=== PATIENT | male | born 1935 | race Hispanic/Latino ===

== ENCOUNTER 2018-06-27 13:05 | Inpatient (IN) | payer MEDICARE ==
[~2018-06-27] VITALS: Ht 175.3 cm; Wt 104.3 kg
[2018-06-27] MEDS ORDERED: ACETAMINOPHEN 325 MG TAB PO ONE ×2 (15:00→19:00)
--- NOTE | 2018-06-27 15:47 | Diagnostic Imaging Report ---
EXAMINATION: PA and lateral views of the chest. COMPARISON: None CLINICAL HISTORY: Sepsis DISCUSSION: The lungs are hypoinflated. There is patchy consolidation in the right lower lobe with loss of the hemidiaphragmatic contour. Small associated pleural effusion. Left lung is grossly clear. Heart size and pulmonary vasculature are within normal limits when accounting for degree of inspiratory effort. No acute osseous abnormality. IMPRESSION: Findings compatible with right lower lobe pneumonia and trace parapneumonic effusion in the clinical setting of sepsis. Follow-up chest radiograph in 8 weeks is suggested after appropriate treatment to document resolution. Signed by: Dr. Evgeny Kothari M.D. on 06/27/2018 3:44 PM
[2018-06-27] MEDS ORDERED: CEFTRIAXONE SOD 1 GM/NS 50 ML 50 ML IV ONE (16:15)
[2018-06-27 16:26] LABS: CLARITY,URINE SL CLOUDY (CLEAR); COLOR,URINE YELLOW (YELLOW); LEUKOCYTE ESTERASE ,URINE NEGATIVE (NEGATIVE); NITRITE,URINE NEGATIVE (NEGATIVE); PROTEIN,URINE DIPSTICK 2+ (NEGATIVE)
[2018-06-27 16:27] LABS: BILIRUBIN,URINE NEGATIVE (NEGATIVE); KETONES,URINE NEGATIVE (NEGATIVE); URINE UROBILINOGEN 1 mg/dL (0.2 - 1)
--- NOTE | 2018-06-27 16:30 | NUR ---
PT LETHARGIC BUT AROUSES EASILY TO VOICE. FAMILY AT BEDSIDE. NAD AT THIS TIME.
[2018-06-27 16:39] LABS: BACTERIA,URINE MANY /HPF
[2018-06-27 16:51] LABS: BASOPHILS # (AUTO) 0.1 (0.0-0.1); BASOPHILS % 0.3 % (0.0-1.0); EOSINOPHILS % 0.1 % (0.0-6.0); HEMATOCRIT 33.5 % (38.2-49.6); HEMOGLOBIN 10.9 g/dL (14.0-18.0); LYMPHOCYTES # (AUTO) 1.8 (1.0-3.2); MEAN CORPUSCULAR HEMOGLOBIN 29.9 pg (28-32); MEAN CORPUSCULAR HGB CONC 32.5 g/dL (31-35); MONOCYTES # (AUTO) 2.3 (0.2-0.8); MONOCYTES % 12.4 % (4.4-11.3); NEUTROPHILS # (AUTO) 13.9 (2.1-6.9); NEUTROPHILS % 76.4 % (38.7-80.0); PLATELET COUNT 278 x10e3/uL (140-360); RED BLOOD COUNT 3.64 x10e6/uL (4.3-5.7); RED CELL DISTRIBUTION WIDTH 13.8 % (11.7-14.4)
[2018-06-27 17:14] LABS: ALANINE AMINOTRANSFERASE 19 IU/L (0-55); ALBUMIN 2.6 g/dL (3.5-5.0); ALBUMIN/GLOBULIN RATIO 0.5 (0.8-2.0); ALKALINE PHOSPHATASE 86 IU/L (40-150); ANION GAP 11.9 mmol/L (8-16); BLOOD UREA NITROGEN 13 mg/dL (7-26); BUN/CREATININE RATIO 12 (6-25); CALCIUM 8.8 mg/dL (8.4-10.2); CARBON DIOXIDE 25 mmol/L (22-29); CHLORIDE 99 mmol/L (98-107); CREATININE, SERUM 1.12 mg/dL (0.72-1.25); EST GLOMERULAR FILTRATION RATE > 60 ML/MIN (60-); GLUCOSE 199 mg/dL (74-118); POTASSIUM 3.9 mmol/L (3.5-5.1); SODIUM 132 mmol/L (136-145)
[2018-06-27] MEDS ORDERED: DEXTROSE 50% SYRINGE 50 ML IV PRN (18:45)
[2018-06-27] MEDS ORDERED: CEFTRIAXONE SOD 1 GRAM/0.9% SOD CHL 50ML BAG IV SCH (18:45)
[2018-06-27] MEDS: ALBUTEROL SULF 0.083% NEB SOLN 3 ML NEB NEB SCH ×2 (18:45→23:00)
[2018-06-27] MEDS ORDERED: AZITHROMYCIN 500MG/SOD CHL 0.9% 250ML BAG IV SCH (18:45)
[2018-06-27] MEDS ORDERED: CEFTRIAXONE SOD 1 GM/NS 50 ML 50 ML IV SCH (19:00)
--- OUTSIDE RECORDS SUMMARY | 2018-06-27 19:00 | XMS REPORT ---
Author Author [facility] Address Unknown Phone Unavailable Care Team Providers Care Circulation Director Name Role Phone Heri PARHAM Unavailable Unavailable Payers Payer Name Policy Type Policy Number Effective Date Expiration Date Problems This patient has no known problems. Allergies, Adverse Reactions, Alerts Allergy Name Allergy Type Status Severity Reaction(s) Onset Date Inactive Date Treating Clinician Comments No Known Allergies DA Active U 2018-06-23 00:00:00 Penicillins DA Active U 2011-06-09 00:00:00 Medications This patient has no known medications. Results Test Description Test Time Test Comments Text Results Atomic Results Result Comments CHEST 2 VIEWS 2018-06-27 15:42:00 [place] [address] Patient Name: CHAD NARVAEZ MR #: [id number] : 1935 Age/Sex: 83/M Req #: [id number] Adm Physician: Ordered by: MARILIN PARHAM MD Report #: [id number] Location: ER Room/Bed: Procedure: [id number] DX/CHEST 2 VIEWS Exam Date: 06/27/18 Exam Time: 1510 REPORT STATUS: Signed EXAMINATION: PA and lateral views of the chest. C OMPARISON: None CLINICAL HISTORY: Sepsis DISCUSSION: The lungs are hypoinflated. There is patchy consolidation in the right lower lobe with loss of the hemidiaphragmatic contour. Small associated pleural effusion. Left lung is grossly clear. Heart size and pulmonary vasculature are within normal limits when accounting for degree of inspiratory effort. No acute osseous abnormality. IMPRESSION: Findings compatible with right lower lobe pneumonia and trace parapneumonic effusion in the clinical setting of sepsis. Follow-up chest radiograph in 8 weeks is suggested after appropriate treatment to document resolution. Signed by: Dr. Luis Mckeon M.D. on 06/27/2018 3:44 PM Dictated By: LUIS MCKEON MD [id number] Transcribed By: OLEKSANDR on 06/27/18 [id number] COPY TO: MARILIN PARHAM MD URINALYSIS COMPLETE 2018-06-24 02:40:00 UA COLOR (test code=COLU) YELLOW YELLOW UA APPEARANCE (test code=APPU) CLEAR CLEAR UA GLUCOSE DIPSTICK (test code=DGLUU) 50 (Trace) mg/dL NEGATIVE UA BILIRUBIN DIPSTICK (test code=BILU) NEGATIVE mg/dL NEGATIVE UA KETONE DIPSTICK (test code=KETU) 20 (Small) mg/dL NEGATIVE UA SPECIFIC GRAVITY (test code=SGU) 1.027 1.001-1.035 UA BLOOD DIPSTICK (test code=JOAO) 1+ (Small) NEGATIVE UA PH DIPSTICK (test code=DEBBIE) 5.0 5.0-8.0 UA PROTEIN DIPSTICK (test code=PROU) 30 (1+) mg/dL NEGATIVE UA UROBILINIOGEN DIPSTICK (test code=URO) 2.0 (1+) mg/dL NEGATIVE UA NITRITE DIPSTICK (test code=KRYSTIN) NEGATIVE NEGATIVE UA LEUKOCYTE ESTERASE W REFLEX (test code=LEUUR) NEGATIVE NEGATIVE UA WBC (test code=WBCU) 0-5 #/HPF 0-5 UA RBC (test code=RBCU) 0-2 #/HPF 0-5 UA EPITHELIAL CELLS (test code=EPIU) FEW per HPF FEW UA BACTERIA (test code=BACU) NONE SEEN #/HPF NONE UA HYALINE CAST (test code=HYALU) 3-5 #/LPF 0-5 UA GRANULAR CAST (test code=GRANU) 6-10 #/LPF NONE UA MUCUS (test code=MUCU) FEW #/LPF FEW UA AMORPHOUS SEDIMENT (test code=AMORU) FEW #/LPF Urine Source? Clean CatchPROCALCITONIN (PCT)2018-06-24 02:01:00* Test Item Value Reference Range Comments PROCALCITONIN (PCT) (test code=PROCAL) 0.33 ng/ml Concentration Interpretation (ng/mL) <0.51 Sepsis is not likely. Local bacterial infection is possible. (LOW RISK for progression to Sepsis) 0.51 - 2.00 Sepsis is possible, but other conditions are known to elevate PCT as well. (MODERATE RISK for progression to Sepsis) > 2.00 Sepsis is likely, unless other causes are known. (HIGH RISK for progression to Severe Sepsis or Septic Shock) 10.00 High likelihood of Severe Sepsis or Septic or higher Shock. *Increased PCT levels may not always be related to systemic bacterial infection.*Low PCT levels do not automatically exclude the presence of bacterial infection.*All results should be interpreted taking into account the patients history. BASIC METABOLIC [id number] 00:42:00* Test Item Value Reference Range Comments SODIUM (test code=NA) 137 mmol/L 136-145 POTASSIUM (test code=K) 3.5 mmol/L 3.5-5.1 CHLORIDE (test code=CL) 104.0 mmol/L 98-107 CARBON DIOXIDE (test code=CO2) 25.0 mmol/L 21-32 ANION GAP (test code=GAP) 11.5 10-20 GLUCOSE (test code=GLU) 157 mg/dL 74-106 BLOOD UREA NITROGEN (test code=BUN) 25 mg/dL 7-18 GLOMERULAR FILTRATION RATE (test code=GFR) 53 mL/min >=60 Estimated GFR by using Modified MDRD formula.Chronic kidney disease is defined as either kidney damageor GFR <60 mL/min/1.73 m2 for >3 months. CREATININE (test code=CREAT) 1.30 mg/dL 0.7-1.3 BUN/CREATININE RATIO (test code=BUN/CREA) 19.2 10-20 CALCIUM (test code=CA) 8.5 mg/dL 8.5-10.1 HEPATIC FUNCTION [id number] 00:42:00* Test Item Value Reference Range Comments TOTAL PROTEIN (test code=PROT) 7.5 gram/dL 6.4-8.2 ALBUMIN (test code=ALB) 3.1 g/dL 3.4-5.0 GLOBULIN (test code=GLOB) 4.4 gram/dL 2.7-4.2 ALBUMIN/GLOBULIN RATIO (test code=A/G) 0.7 0.75-1.50 BILIRUBIN TOTAL (test code=BILT) 0.60 mg/dL 0.0-1.0 BILIRUBIN DIRECT (test code=BILD) 0.21 mg/dL 0.0-0.20 SGOT/AST (test code=AST) 10 IUnit/L 15-37 SGPT/ALT (test code=ALT) 13 IUnit/L 12-78 ALKALINE PHOSPHATASE TOTAL (test code=ALKP) 80 IUnit/L 45-117 Note change in reference range due to change in reagent. [id number] 00:42:00* Test Item Value Reference Range Comments LIPASE (test code=LIP) 139 U/L 73.0-393.0 [id number] 00:42:00* Test Item Value Reference Range Comments TROPONIN-I (test code=TROPI) <0.015 ng/mL 0-0.045 B-TYPE NATRIURETIC [id number] 00:35:00* Test Item Value Reference Range Comments B-TYPE NATRIURETIC PEPTIDE (test code=BNP) 47.54 pgram/mL 0-100 LACTIC [id number] 00:33:00* Test Item Value Reference Range Comments LACTIC ACID (test code=LACT) 1.0 mmol/L 0.4-1.9 BASIC METABOLIC [id number] 00:21:00* Test Item Value Reference Range Comments SODIUM (test code=NA) 137 mmol/L 136-145 POTASSIUM (test code=K) 3.5 mmol/L 3.5-5.1 CHLORIDE (test code=CL) 104.0 mmol/L 98-107 CARBON DIOXIDE (test code=CO2) mmol/L 21-32 ANION GAP (test code=GAP) 10-20 GLUCOSE (test code=GLU) mg/dL 74-106 BLOOD UREA NITROGEN (test code=BUN) mg/dL 7-18 GLOMERULAR FILTRATION RATE (test code=GFR) mL/min >=60 CREATININE (test code=CREAT) mg/dL 0.7-1.3 BUN/CREATININE RATIO (test code=BUN/CREA) 10-20 CALCIUM (test code=CA) mg/dL 8.5-10.1 HEPATIC FUNCTION [id number] 00:21:00* Test Item Value Reference Range Comments TOTAL PROTEIN (test code=PROT) gram/dL 6.4-8.2 ALBUMIN (test code=ALB) g/dL 3.4-5.0 GLOBULIN (test code=GLOB) gram/dL 2.7-4.2 ALBUMIN/GLOBULIN RATIO (test code=A/G) 0.75-1.50 BILIRUBIN TOTAL (test code=BILT) mg/dL 0.0-1.0 BILIRUBIN DIRECT (test code=BILD) mg/dL 0.0-0.20 SGOT/AST (test code=AST) IUnit/L 15-37 SGPT/ALT (test code=ALT) IUnit/L 12-78 ALKALINE PHOSPHATASE TOTAL (test code=ALKP) IUnit/L 45-117 [id number] 00:21:00* Test Item Value Reference Range Comments LIPASE (test code=LIP) U/L 73.0-393.0 [id number] 00:21:00* Test Item Value Reference Range Comments TROPONIN-I (test code=TROPI) ng/mL 0-0.045 CBC W/MANUAL [id number] 00:09:00* Test Item Value Reference Range Comments WHITE BLOOD CELL (test code=WBC) 16.5 K/mm3 4.5-12.5 RED BLOOD CELL (test code=RBC) 3.81 mill/mm3 4.0-5.8 HEMOGLOBIN (test code=HGB) 11.2 gram/dL 13.0-17.5 HEMATOCRIT (test code=HCT) 35.5 % 42.0-52.0 MEAN CELL VOLUME (test code=MCV) 93.2 fL 80-98 MEAN CELL HGB (test code=MCH) 29.4 picogram 27.0-33.0 MEAN CELL HGB CONCETRATION (test code=MCHC) 31.5 gram/dL 33.0-36.0 RED CELL DISTRIBUTION WIDTH (test code=RDW) 13.0 % 11.6-16.2 RED CELL DISTRIBUTION WIDTH SD (test code=RDW-SD) 45.0 fL 37.0-51.0 PLATELET COUNT (test code=PLT) 231 K/mm3 150-450 MEAN PLATELET VOLUME (test code=MPV) 11.2 fL 6.7-11.0 IMMATURE GRANULOCYTE % (test code=IG%) 0.7 % 0.0-5.0 NUCLEATED RBC % (test code=NRBC%) 0.0 % 0-0 NEUTROPHIL # (test code=NT#) 12.19 K/mm3 1.8-7.7 IMMATURE GRANULOCYTE # (test code=IG#) 0.11 x10 3/uL 0-0.03 LYMPHOCYTE # (test code=LY#) 1.98 K/mm3 1.0-5.0 MONOCYTE # (test code=MO#) 2.12 K/mm3 0-0.8 EOSINOPHIL # (test code=EO#) 0.02 K/mm3 0.0-0.5 BASOPHIL # (test code=BA#) 0.05 K/mm3 0.0-0.2 NUCLEATED RBC # (test code=NRBC#) 0.00 K/mm3 0.0-0.1 MANUAL DIFF REQUIRED (test code=MDIFF) YES STAIN ACCEPTABILITY (test code=STN ACCEPTABLE) STAIN ACCEPTABLE TOTAL CELLS COUNTED (test code=TCC) 112 #CELLS SEGMENTED NEUTROPHILS (test code=SEG) 74.1 % 39-69 BAND NEUTROPHIL (test code=BAND) 0 % 0-10 LYMPHOCYTE (test code=LYMPH) 10.7 % 25-55 REACTIVE LYMPH (test code=RELYMPH) 0 % MONOCYTE (test code=MON) 15.2 % 0-10 EOSINOPHIL (test code=EOS) 0 % 0.0-5.0 BASOPHIL (test code=BASO) 0 % 0-1.0 METAMYELOCYTE (test code=META) 0 % 0-0 MYELOCYTE (test code=MYELO) 0 % 0.0-0.0 PROMYELOCYTE (test code=PROM) 0 % 0-0 POLYCHROMASIA (test code=POLC) 1+ PLATELET ESTIMATE (test code=PLTEST) ADEQUATE PLATELET MORPHOLOGY (test code=PLTMORPH) NORMAL IMMATURE FORMS (test code=IMMAT) 0 % PROTHROMBIN [id number] 23:57:00* Test Item Value Reference Range Comments PROTHROMBIN TIME PATIENT (test code=PTP) 15.8 seconds 9.0-14.0 INTERNATIONAL NORMAL RATIO (test code=INR) 1.4 0.8-1.2 The therapeutic range for oral anticoagulant therapy formost indications is an international normalized ratio (INR)of between 2.0 and 3.0. The recommended therapeutic INRrange for various clinical situations is listed below: Clinical Situation INR range Pulmonary e mbolism treatment (2.0-3.0)Venous thrombosis treatmentVenous thrombosis prophylaxis (high risk surgery)Prevention of systemic embolism from: Acute myocardial infarction Valvular heart disease Atrial fibrillation Mechanical prosthetic heart valves (2.5-3.5) IS PATIENT ON ANTICOAGULANTS? NTHROMBOPLASTIN TIME [id number] 23:57:00* Test Item Value Reference Range Comments THROMBOPLASTIN TIME PARTIAL (test code=PTT) 38.1 seconds 25.0-36.5 IS PATIENT ON ANTICOAGULANTS? NCBC W/MANUAL [id number] 23:50:00* Test Item Value Reference Range Comments WHITE BLOOD CELL (test code=WBC) 16.5 K/mm3 4.5-12.5 RED BLOOD CELL (test code=RBC) 3.81 mill/mm3 4.0-5.8 HEMOGLOBIN (test code=HGB) 11.2 gram/dL 13.0-17.5 HEMATOCRIT (test code=HCT) 35.5 % 42.0-52.0 MEAN CELL VOLUME (test code=MCV) 93.2 fL 80-98 MEAN CELL HGB (test code=MCH) 29.4 picogram 27.0-33.0 MEAN CELL HGB CONCETRATION (test code=MCHC) 31.5 gram/dL 33.0-36.0 RED CELL DISTRIBUTION WIDTH (test code=RDW) 13.0 % 11.6-16.2 RED CELL DISTRIBUTION WIDTH SD (test code=RDW-SD) 45.0 fL 37.0-51.0 PLATELET COUNT (test code=PLT) 231 K/mm3 150-450 MEAN PLATELET VOLUME (test code=MPV) 11.2 fL 6.7-11.0 IMMATURE GRANULOCYTE % (test code=IG%) 0.7 % 0.0-5.0 NUCLEATED RBC % (test code=NRBC%) 0.0 % 0-0 NEUTROPHIL # (test code=NT#) 12.19 K/mm3 1.8-7.7 IMMATURE GRANULOCYTE # (test code=IG#) 0.11 x10 3/uL 0-0.03 LYMPHOCYTE # (test code=LY#) 1.98 K/mm3 1.0-5.0 MONOCYTE # (test code=MO#) 2.12 K/mm3 0-0.8 EOSINOPHIL # (test code=EO#) 0.02 K/mm3 0.0-0.5 BASOPHIL # (test code=BA#) 0.05 K/mm3 0.0-0.2 NUCLEATED RBC # (test code=NRBC#) 0.00 K/mm3 0.0-0.1 MANUAL DIFF REQUIRED (test code=MDIFF) YES STAIN ACCEPTABILITY (test code=STN ACCEPTABLE) TOTAL CELLS COUNTED (test code=TCC) #CELLS SEGMENTED NEUTROPHILS (test code=SEG) % 39-69 LYMPHOCYTE (test code=LYMPH) % 25-55 MONOCYTE (test code=MON) % 0-10 EOSINOPHIL (test code=EOS) % 0.0-5.0 CABOT RINGS (test code=CAB) MORPHOLOGY COMMENT (test code=MOC) PLATELET ESTIMATE (test code=PLTEST) PLATELET MORPHOLOGY (test code=PLTMORPH) CBC W/MANUAL [id number] 23:50:00* Test Item Value Reference Range Comments WHITE BLOOD CELL (test code=WBC) 16.5 K/mm3 4.5-12.5 RED BLOOD CELL (test code=RBC) 3.81 mill/mm3 4.0-5.8 HEMOGLOBIN (test code=HGB) 11.2 gram/dL 13.0-17.5 HEMATOCRIT (test code=HCT) 35.5 % 42.0-52.0 MEAN CELL VOLUME (test code=MCV) 93.2 fL 80-98 MEAN CELL HGB (test code=MCH) 29.4 picogram 27.0-33.0 MEAN CELL HGB CONCETRATION (test code=MCHC) 31.5 gram/dL 33.0-36.0 RED CELL DISTRIBUTION WIDTH (test code=RDW) 13.0 % 11.6-16.2 RED CELL DISTRIBUTION WIDTH SD (test code=RDW-SD) 45.0 fL 37.0-51.0 PLATELET COUNT (test code=PLT) 231 K/mm3 150-450 MEAN PLATELET VOLUME (test code=MPV) 11.2 fL 6.7-11.0 IMMATURE GRANULOCYTE % (test code=IG%) 0.7 % 0.0-5.0 NUCLEATED RBC % (test code=NRBC%) 0.0 % 0-0 NEUTROPHIL # (test code=NT#) 12.19 K/mm3 1.8-7.7 IMMATURE GRANULOCYTE # (test code=IG#) 0.11 x10 3/uL 0-0.03 LYMPHOCYTE # (test code=LY#) 1.98 K/mm3 1.0-5.0 MONOCYTE # (test code=MO#) 2.12 K/mm3 0-0.8 EOSINOPHIL # (test code=EO#) 0.02 K/mm3 0.0-0.5 BASOPHIL # (test code=BA#) 0.05 K/mm3 0.0-0.2 NUCLEATED RBC # (test code=NRBC#) 0.00 K/mm3 0.0-0.1 MANUAL DIFF REQUIRED (test code=MDIFF) YES STAIN ACCEPTABILITY (test code=STN ACCEPTABLE) TOTAL CELLS COUNTED (test code=TCC) #CELLS SEGMENTED NEUTROPHILS (test code=SEG) % 39-69 LYMPHOCYTE (test code=LYMPH) % 25-55 MONOCYTE (test code=MON) % 0-10 EOSINOPHIL (test code=EOS) % 0.0-5.0 CABOT RINGS (test code=CAB) MORPHOLOGY COMMENT (test code=MOC) PLATELET ESTIMATE (test code=PLTEST) PLATELET MORPHOLOGY (test code=PLTMORPH) CBC W/MANUAL [id number] 23:50:00* Test Item Value Reference Range Comments WHITE BLOOD CELL (test code=WBC) 16.5 K/mm3 4.5-12.5 RED BLOOD CELL (test code=RBC) 3.81 mill/mm3 4.0-5.8 HEMOGLOBIN (test code=HGB) 11.2 gram/dL 13.0-17.5 HEMATOCRIT (test code=HCT) 35.5 % 42.0-52.0 MEAN CELL VOLUME (test code=MCV) 93.2 fL 80-98 MEAN CELL HGB (test code=MCH) 29.4 picogram 27.0-33.0 MEAN CELL HGB CONCETRATION (test code=MCHC) 31.5 gram/dL 33.0-36.0 RED CELL DISTRIBUTION WIDTH (test code=RDW) 13.0 % 11.6-16.2 RED CELL DISTRIBUTION WIDTH SD (test code=RDW-SD) 45.0 fL 37.0-51.0 PLATELET COUNT (test code=PLT) 231 K/mm3 150-450 MEAN PLATELET VOLUME (test code=MPV) 11.2 fL 6.7-11.0 IMMATURE GRANULOCYTE % (test code=IG%) 0.7 % 0.0-5.0 NUCLEATED RBC % (test code=NRBC%) 0.0 % 0-0 NEUTROPHIL # (test code=NT#) 12.19 K/mm3 1.8-7.7 IMMATURE GRANULOCYTE # (test code=IG#) 0.11 x10 3/uL 0-0.03 LYMPHOCYTE # (test code=LY#) 1.98 K/mm3 1.0-5.0 MONOCYTE # (test code=MO#) 2.12 K/mm3 0-0.8 EOSINOPHIL # (test code=EO#) 0.02 K/mm3 0.0-0.5 BASOPHIL # (test code=BA#) 0.05 K/mm3 0.0-0.2 NUCLEATED RBC # (test code=NRBC#) 0.00 K/mm3 0.0-0.1 MANUAL DIFF REQUIRED (test code=MDIFF) YES STAIN ACCEPTABILITY (test code=STN ACCEPTABLE) TOTAL CELLS COUNTED (test code=TCC) #CELLS SEGMENTED NEUTROPHILS (test code=SEG) % 39-69 LYMPHOCYTE (test code=LYMPH) % 25-55 MONOCYTE (test code=MON) % 0-10 EOSINOPHIL (test code=EOS) % 0.0-5.0 MORPHOLOGY COMMENT (test code=MOC) PLATELET ESTIMATE (test code=PLTEST) PLATELET MORPHOLOGY (test code=PLTMORPH) CBC W/MANUAL [id number] 23:50:00* Test Item Value Reference Range Comments WHITE BLOOD CELL (test code=WBC) 16.5 K/mm3 4.5-12.5 RED BLOOD CELL (test code=RBC) 3.81 mill/mm3 4.0-5.8 HEMOGLOBIN (test code=HGB) 11.2 gram/dL 13.0-17.5 HEMATOCRIT (test code=HCT) 35.5 % 42.0-52.0 MEAN CELL VOLUME (test code=MCV) 93.2 fL 80-98 MEAN CELL HGB (test code=MCH) 29.4 picogram 27.0-33.0 MEAN CELL HGB CONCETRATION (test code=MCHC) 31.5 gram/dL 33.0-36.0 RED CELL DISTRIBUTION WIDTH (test code=RDW) 13.0 % 11.6-16.2 RED CELL DISTRIBUTION WIDTH SD (test code=RDW-SD) 45.0 fL 37.0-51.0 PLATELET COUNT (test code=PLT) 231 K/mm3 150-450 MEAN PLATELET VOLUME (test code=MPV) 11.2 fL 6.7-11.0 IMMATURE GRANULOCYTE % (test code=IG%) 0.7 % 0.0-5.0 NUCLEATED RBC % (test code=NRBC%) 0.0 % 0-0 NEUTROPHIL # (test code=NT#) 12.19 K/mm3 1.8-7.7 IMMATURE GRANULOCYTE # (test code=IG#) 0.11 x10 3/uL 0-0.03 LYMPHOCYTE # (test code=LY#) 1.98 K/mm3 1.0-5.0 MONOCYTE # (test code=MO#) 2.12 K/mm3 0-0.8 EOSINOPHIL # (test code=EO#) 0.02 K/mm3 0.0-0.5 BASOPHIL # (test code=BA#) 0.05 K/mm3 0.0-0.2 NUCLEATED RBC # (test code=NRBC#) 0.00 K/mm3 0.0-0.1 MANUAL DIFF REQUIRED (test code=MDIFF) YES STAIN ACCEPTABILITY (test code=STN ACCEPTABLE) TOTAL CELLS COUNTED (test code=TCC) #CELLS SEGMENTED NEUTROPHILS (test code=SEG) % 39-69 LYMPHOCYTE (test code=LYMPH) % 25-55 MONOCYTE (test code=MON) % 0-10 MORPHOLOGY COMMENT (test code=MOC) PLATELET ESTIMATE (test code=PLTEST) PLATELET MORPHOLOGY (test code=PLTMORPH) CBC W/MANUAL [id number] 23:50:00* Test Item Value Reference Range Comments WHITE BLOOD CELL (test code=WBC) 16.5 K/mm3 4.5-12.5 RED BLOOD CELL (test code=RBC) 3.81 mill/mm3 4.0-5.8 HEMOGLOBIN (test code=HGB) 11.2 gram/dL 13.0-17.5 HEMATOCRIT (test code=HCT) 35.5 % 42.0-52.0 MEAN CELL VOLUME (test code=MCV) 93.2 fL 80-98 MEAN CELL HGB (test code=MCH) 29.4 picogram 27.0-33.0 MEAN CELL HGB CONCETRATION (test code=MCHC) 31.5 gram/dL 33.0-36.0 RED CELL DISTRIBUTION WIDTH (test code=RDW) 13.0 % 11.6-16.2 RED CELL DISTRIBUTION WIDTH SD (test code=RDW-SD) 45.0 fL 37.0-51.0 PLATELET COUNT (test code=PLT) 231 K/mm3 150-450 MEAN PLATELET VOLUME (test code=MPV) 11.2 fL 6.7-11.0 IMMATURE GRANULOCYTE % (test code=IG%) 0.7 % 0.0-5.0 NUCLEATED RBC % (test code=NRBC%) 0.0 % 0-0 NEUTROPHIL # (test code=NT#) 12.19 K/mm3 1.8-7.7 IMMATURE GRANULOCYTE # (test code=IG#) 0.11 x10 3/uL 0-0.03 LYMPHOCYTE # (test code=LY#) 1.98 K/mm3 1.0-5.0 MONOCYTE # (test code=MO#) 2.12 K/mm3 0-0.8 EOSINOPHIL # (test code=EO#) 0.02 K/mm3 0.0-0.5 BASOPHIL # (test code=BA#) 0.05 K/mm3 0.0-0.2 NUCLEATED RBC # (test code=NRBC#) 0.00 K/mm3 0.0-0.1 MANUAL DIFF REQUIRED (test code=MDIFF) YES STAIN ACCEPTABILITY (test code=STN ACCEPTABLE) TOTAL CELLS COUNTED (test code=TCC) #CELLS SEGMENTED NEUTROPHILS (test code=SEG) % 39-69 LYMPHOCYTE (test code=LYMPH) % 25-55 MONOCYTE (test code=MON) % 0-10 EOSINOPHIL (test code=EOS) % 0.0-5.0 CABOT RINGS (test code=CAB) MORPHOLOGY COMMENT (test code=MOC) PLATELET ESTIMATE (test code=PLTEST) PLATELET MORPHOLOGY (test code=PLTMORPH) - XR CHEST 1 [id number] 23:39:00 FAX: Ananya Junior MD [phone] [place]: St: REG Name: CHAD HONG [facility] : 06/16/18 36 Age/S: 83/M [address] [facility] Unit #: [id number] Loc: [place] [address] Phys: Ananya Junior MD Acct: [id number] Dis Date: Status: REG ER PHONE #: [phone] Exam Date: 06/23/2018 2331 FAX #: [phone] Reason: CODE SEPSIS EXAMS: CPT CODE: [id number] XR CHEST 1 V 62475 HISTORY: Male, 83 years of age with fever and chills, CODE SEPSIS Location code: R16 EXAM: CHEST X-RAY, ONE VIEW COMPARISON: 06/10/2011 COMMENT: Frontal view of the chest is provided. Calcified plaque seen in t he aorta. Mild interstitial opacities are seen in right lower lung. Left lung is clear. No lobar consolidation or significant effusion. Cardiac shantell houette is enlarged. No acute bony abnormalities. IMPRESSION: Mild interstitial pneumonia in right lower lobe. Electronically Sign ed by Esther Bae MD on 06/23/2018 at 2334 Reported an d signed by: Esther Bae MD CC: Ananya Junior MD Technologist: Celsa Razo Trnderd Date/Time/By: 06/23/2018 (1950) : By: CariCLW Orig Print D/T: S: 06/23/2018 (6205) PAGE 1 Signed Report
[2018-06-27 19:12] LABS: CREATINE KINASE MB 0.7 ng/mL (0-5.0)
[2018-06-27] MEDS ORDERED: HYDROCHLOROTHIA25 MG PO (19:22)
[2018-06-27] MEDS ORDERED: CEFTIN PO (19:22)
[2018-06-27] MEDS ORDERED: LOSARTAN POTAS100 MG PO (19:22)
[2018-06-27] MEDS ORDERED: METFORMIN HCL500 MG PO (19:22)
[2018-06-27] MEDS ORDERED: GLIMEPIRIDE2 MG PO (19:22)
[2018-06-27] MEDS: AZITHROMYCIN 500MG/NS 250 ML 250 ML IV SCH (20:46)
--- NOTE | 2018-06-27 23:53 | NUR ---
patient rounds- patient asleep in no distress, family at bedside, family has no concerns or questions
[2018-06-28] MEDS: INSULIN LISPRO 100 UNIT/1 ML 3ML VIAL SQ SCH ×4 (01:16→21:00)
[2018-06-28] MEDS: ALBUTEROL SULF 0.083% NEB SOLN 3 ML NEB NEB SCH ×5 (03:00→19:20)
--- NOTE | 2018-06-28 03:09 | Diagnostic Imaging Report ---
EXAMINATION: CHEST SINGLE (PORTABLE) INDICATION: Pneumonia. COMPARISON: Chest x-ray 06/27/2018 FINDINGS: AP view TUBES and LINES: None. LUNGS: Right lower lobe airspace opacity, stable. PLEURA: Trace right pleural effusion. No left pleural effusion. No pneumothorax. HEART AND MEDIASTINUM: The cardiomediastinal silhouette is unremarkable. There are atherosclerotic calcifications within the aorta. BONES AND SOFT TISSUES: No acute osseous lesion. Soft tissues are unremarkable. UPPER ABDOMEN: No free air under the diaphragm. IMPRESSION: Stable right basilar airspace opacity concerning for pneumonia. Signed by: DR. Quentin No MD on 06/28/2018 3:05 AM
--- NOTE | 2018-06-28 03:29 | Pre Op History & Physical ---
CHIEF COMPLAINT: Fever and congestion. HISTORY OF PRESENT ILLNESS: The patient is an 83-year-old man with a history of rud-tkejxwl-efuzqqiyw diabetes mellitus and hypertension. He had some chest congestion and fever over the past several days. He went to the emergency department at [facility] about 4 or 5 days ago and received some oral antibiotics. He has not improved with this and now returns for a fever and congestion. He does not complain of chest pain. He has no nausea or vomiting. PAST MEDICAL HISTORY: 1. Cfa-shdazdr-jyxlyuela diabetes. 2. Hypertension. 3. No prior history of strokes. 4. No known history of Parkinson disease or neurological problems. 5. No known history of cardiac disease. PAST SURGICAL HISTORY: Noncontributory. ALLERGIES: THERE ARE NO KNOWN DRUG ALLERGIES. FAMILY HISTORY: Family history is noncontributory. REVIEW OF SYSTEMS: The patient had a fever. He does not complain of headache or neck pain. He has no sore throat. He is not having any swollen glands. He does not complain of chest pain. He does have some cough. He did have some mild dyspnea. He has no abdominal pain. There is no nausea or vomiting. He has no leg edema. He has no focal neurological complaints. PHYSICAL EXAMINATION: VITAL SIGNS: The blood pressure is 114/57 and the pulse is 78. The saturation is 97% and the respiratory rate is 16. HEENT: Shows no facial swelling or erythema. The nasal mucosa is normal. The oropharynx is normal. LYMPHATIC: Shows no submandibular, cervical, or supraclavicular adenopathy. CARDIAC: Reveals a regular rate and rhythm with a normal S1, S2. There are no murmurs or rubs. Auscultation of lungs reveals decreased breath sounds on the right base. ABDOMEN: Soft and nontender. There is no rebound or guarding. EXTREMITIES: Show no leg edema or calf tenderness. There is no cyanosis or clubbing. SKIN: Shows no rashes. NEUROLOGICAL: Shows no focal abnormalities. LABORATORY DATA: BUN to creatinine ratio is normal. The glucose is 152. White blood cell count is 18.2 and hemoglobin is 10.9. The platelet count is 278. Flu swab is negative. IMPRESSION: 1. Community-acquired pneumonia with sepsis, present on admission. 2. Diabetes. 3. Hypertension. PLAN: 1. The patient will receive IV antibiotics. 2. Cultures. 3. Continue current regimen for diabetes and hypertension. 4. Physical therapy. 5. Speech therapy evaluation. 6. Echocardiogram and Cardiology evaluation. MD HU Sanchez/MODL /[id number]
[2018-06-28 06:23] LABS: BASOPHILS # (AUTO) 0.1 (0.0-0.1); BASOPHILS % 0.4 % (0.0-1.0); EOSINOPHILS # (AUTO) 0.1 (0.0-0.4); EOSINOPHILS % 0.5 % (0.0-6.0); HEMATOCRIT 33.5 % (38.2-49.6); HEMOGLOBIN 10.9 g/dL (14.0-18.0); LYMPHOCYTES % 11.9 % (18.0-39.1); MEAN CORPUSCULAR HEMOGLOBIN 30.1 pg (28-32); MEAN CORPUSCULAR HGB CONC 32.5 g/dL (31-35); MEAN CORPUSCULAR VOLUME 92.5 fL (81-99); MONOCYTES # (AUTO) 2.1 (0.2-0.8); NEUTROPHILS # (AUTO) 12.7 (2.1-6.9); NEUTROPHILS % 74.3 % (38.7-80.0); PLATELET COUNT 239 x10e3/uL (140-360); RED BLOOD COUNT 3.62 x10e6/uL (4.3-5.7); RED CELL DISTRIBUTION WIDTH 13.9 % (11.7-14.4)
[2018-06-28] MEDS: IPRATROPIUM BROMIDE 0.02% 2.5 ML NEB NEB SCH ×4 (07:00→19:20)
--- NOTE | 2018-06-28 07:15 | NUR ---
report given to mandie giles
[2018-06-28] MEDS: SODIUM CHLORIDE 0.9% 1000ML 1,000 ML IV SCH ×4 (07:22→20:00)
[2018-06-28 07:32] LABS: CREATINE KINASE MB 0.8 ng/mL (0-5.0)
[2018-06-28 07:49] LABS: BLOOD UREA NITROGEN 14 mg/dL (7-26); BUN/CREATININE RATIO 15 (6-25); CALCIUM 8.5 mg/dL (8.4-10.2); CARBON DIOXIDE 23 mmol/L (22-29); CHLORIDE 99 mmol/L (98-107); CREATININE, SERUM 0.91 mg/dL (0.72-1.25); EST GLOMERULAR FILTRATION RATE > 60 ML/MIN (60-); GLUCOSE 119 mg/dL (74-118); SODIUM 131 mmol/L (136-145)
[2018-06-28] MEDS ORDERED: ACETAMINOPHEN 325 MG TAB ONE (07:55)
[2018-06-28] MEDS ORDERED: ACETAMINOPHEN 325 MG TAB PO PRN (08:00)
[2018-06-28] MEDS: CEFTRIAXONE SOD 1 GM/NS 50 ML 50 ML IV SCH ×2 (08:57→20:54)
[2018-06-28] MEDS ORDERED: GLIMEPIRIDE 2 MG TAB PO SCH (09:00)
[2018-06-28 09:02] LABS: EOSINOPHILS % (MANUAL) 2 % (0-7); LYMPHOCYTES % (MANUAL) 8 % (19-48); MONOCYTES % (MANUAL) 8 % (3.4-9.0); NEUTROPHILS % (MANUAL) 82 % (40-74)
[2018-06-28] MEDS: LOSARTAN POTASSIUM 100 MG TAB PO SCH (09:02)
[2018-06-28] MEDS: METFORMIN HCL 500 MG TAB PO SCH (09:03)
--- NOTE | 2018-06-28 10:29 | NUR ---
Physical therapy at bedside working with patient.
--- NOTE | 2018-06-28 12:11 | NUR ---
Walking rounds with LUIS Casarez. Patient in no distress at this time.
--- NOTE | 2018-06-28 12:12 | NUR ---
Bedside rounds completed with Zen SMITH. Assumed care, pt is in no acute distress at this time.
[2018-06-28 14:44] LABS: CREATINE KINASE MB 0.5 ng/mL (0-5.0)
--- NOTE | 2018-06-28 16:42 | NUR ---
Spoke with Charge Nurse Leslie for attempt to give report, was asked to call back in 45 minutes.
[2018-06-28] MEDS ORDERED: CEFTRIAXONE SOD 1 GM/NS 50 ML 50 ML IV SCH (17:00)
--- NOTE | 2018-06-28 18:38 | Progress Note ---
DATE: 06/28/2018 Pulmonary Progress Note SUBJECTIVE: The patient had a swallowing evaluation today. There was some evidence of aspiration. Overall, the patient feels better. He is not having any fevers. PHYSICAL EXAMINATION: VITAL SIGNS: The patient is afebrile. The blood pressure is 117/70 and saturation is 100%. The pulse is 86 and the respiratory rate is 19. HEENT: Shows no facial swelling or erythema. The oropharynx is normal. LYMPHATIC: No submandibular, cervical, or supraclavicular adenopathy. CARDIAC: Regular rate and rhythm with normal S1 and S2. There are no murmurs or rubs. LUNGS: Auscultation of lungs reveals rhonchorous breath sounds bilaterally. There is no wheezing. ABDOMEN: Soft and nontender. There is no rebound or guarding. EXTREMITIES: No leg edema or calf tenderness. LABORATORY DATA: The white blood cell count is 17.1 and the hemoglobin is 7.9. The platelet count is 239. The AUC-zj-qbkmvnmzbo ratio is normal. The other electrolytes are within normal limits. The urinalysis is normal. IMPRESSION: 1. Aspiration pneumonia with sepsis present on admission. 2. Diabetes. 3. Hypertension. PLAN: 1. Continue IV antibiotics. 2. Await modified barium swallow. 3. Continue current regimen for diabetes and hypertension. 4. Complete Cardiology evaluation. Nilson West MD LM/DAVID /[id number]
--- NOTE | 2018-06-28 19:02 | NUR ---
Attempted to call report at this time; attempt unsuccessful. Was told to call back in 15 minutes.
--- NOTE | 2018-06-28 19:50 | NUR ---
Patient transported via bed from ER accompanied by daughter. Admission history obtained. Initial physical assessment conducted. Patient is AAO x 3. No complaints of pain. Respirations even and non-labored . 2L NC in place. Patient oriented to room, call light and plan of care. Fall precautions in place. Patient instructed to call for assistance when needed. Call light within reach.
[2018-06-28 20:00] VITALS: BP 111/52
[2018-06-28 20:40] VITALS: BP 111/52
[2018-06-28 20:50] VITALS: BP 111/52
[2018-06-28] MEDS: AZITHROMYCIN 500MG/NS 250 ML 250 ML IV SCH (21:30)
[2018-06-29] VITALS (8 sets, daily range): BP systolic 116–152; BP diastolic 61–69
[2018-06-29] MEDS: IPRATROPIUM BROMIDE 0.02% 2.5 ML NEB NEB SCH ×5 (00:30→23:20)
[2018-06-29] MEDS: ALBUTEROL SULF 0.083% NEB SOLN 3 ML NEB NEB SCH ×7 (00:30→23:20)
--- NOTE | 2018-06-29 02:10 | Consultation ---
DATE OF CONSULTATION: 06/28/2018 Cardiology Consultation Thank you, Dr. Nilson West for this cardiology consultation. The patient is seen and examined. Reviewed the chart. DIAGNOSES: 1. Pneumonia, right lower lobe. 2. Noninsulin-dependent diabetes mellitus. 3. Hypertension. The patient at this time came to the emergency room last night because of shortness of breath and also fever and cough and the patient was treated as an outpatient on p.o. antibiotics at [facility] and discharrged but in the emergency room at [facility], chest x-ray showed right lower lobe pneumonia. The patient admitted and the patient was already seen by Dr. Nilson West and started on IV antibiotics. The patient has a history of hypertension and type 2 diabetes mellitus. The patient sees Dr. Zamora as an outpatient in the [place]. The patient has no history of myocardial infarction or angina pectoris, any history of stroke or any investigation for the coronary artery disease. The patient is moderately active. Daughter and son were at the bedside. The patient is able to answer questions. The patient is deaf, however, most of the information is obtained from the daughter and also son and nurses note. The patient at this time is quite stable. The patient says he is very much improved after coming to the hospital. The patient denies any history of shortness of breath in the past. The patient does not smoke or drink at this time. The patient is retired. PHYSICAL EXAMINATION: Examination of the heart is normal and 2/6 ejection systolic murmur heard in the aortic area. Lungs, some rales noted in the right lower lobe, but some positive mild wheezing also noted. However, chest x-ray shows right lower lobe pneumonia. The patient at this time does not complain of chest pain. No evidence of any pleural pain or pericardial rub pain. Abdomen is normal. There is no significant edema. Neurological is normal. WBC is 18,200 per cubic millimeter. His echocardiogram is done, ejection fraction is about 50%. No evidence of any left ventricular dysfunction, except mild left ventricular hypertrophy. No evidence of any valvular disease. At this time, the patient's symptoms are predominantly are pulmonary and the patient's type 2 diabetes mellitus and hypertension also fairly well controlled. Continue present medication as ordered by Dr. West. I will continue to follow the patient. . The patient at this time is stable cardiac tirado. Thank you again for this consultation. MD MIGUEL Villegas/DAVID /[id number] MTDAlyson
[2018-06-29] MEDS: SODIUM CHLORIDE 0.9% 1000ML 1,000 ML IV SCH ×3 (02:44→18:44)
[2018-06-29 05:22] LABS: BASOPHILS % 0.3 % (0.0-1.0); EOSINOPHILS # (AUTO) 0.1 (0.0-0.4); EOSINOPHILS % 1.1 % (0.0-6.0); HEMATOCRIT 30.9 % (38.2-49.6); LYMPHOCYTES # (AUTO) 1.9 (1.0-3.2); LYMPHOCYTES % 14.7 % (18.0-39.1); MEAN CORPUSCULAR HEMOGLOBIN 29.9 pg (28-32); MEAN CORPUSCULAR HGB CONC 32.4 g/dL (31-35); MEAN CORPUSCULAR VOLUME 92.5 fL (81-99); MONOCYTES # (AUTO) 1.3 (0.2-0.8); MONOCYTES % 9.7 % (4.4-11.3); NEUTROPHILS # (AUTO) 9.7 (2.1-6.9); NEUTROPHILS % 73.1 % (38.7-80.0); PLATELET COUNT 274 x10e3/uL (140-360); RED BLOOD COUNT 3.34 x10e6/uL (4.3-5.7); RED CELL DISTRIBUTION WIDTH 14.1 % (11.7-14.4)
[2018-06-29 05:51] LABS: ALANINE AMINOTRANSFERASE 42 IU/L (0-55); ALBUMIN/GLOBULIN RATIO 0.5 (0.8-2.0); ALKALINE PHOSPHATASE 74 IU/L (40-150); ANION GAP 11.9 mmol/L (8-16); BLOOD UREA NITROGEN 16 mg/dL (7-26); BUN/CREATININE RATIO 17 (6-25); CALCIUM 8.3 mg/dL (8.4-10.2); CARBON DIOXIDE 26 mmol/L (22-29); CHLORIDE 102 mmol/L (98-107); CREATININE, SERUM 0.92 mg/dL (0.72-1.25); EST GLOMERULAR FILTRATION RATE > 60 ML/MIN (60-); GLUCOSE 159 mg/dL (74-118); POTASSIUM 3.9 mmol/L (3.5-5.1); SODIUM 136 mmol/L (136-145)
--- NOTE | 2018-06-29 06:01 | Diagnostic Imaging Report ---
EXAMINATION: CHEST SINGLE (PORTABLE) INDICATION: Pneumonia COMPARISON: Chest x-ray 06/28/2018 FINDINGS: AP view TUBES and LINES: None. LUNGS: Right lower lobe airspace opacity, increased. PLEURA: Small right pleural effusion. No left pleural effusion. No pneumothorax. HEART AND MEDIASTINUM: The cardiomediastinal silhouette is unremarkable. There are atherosclerotic calcifications within the aorta. BONES AND SOFT TISSUES: No acute osseous lesion. Soft tissues are unremarkable. UPPER ABDOMEN: No free air under the diaphragm. IMPRESSION: Increased right basilar airspace opacity concerning for pneumonia. Signed by: DR. Quentin No MD on 06/29/2018 5:58 AM
[2018-06-29] MEDS: INSULIN LISPRO 100 UNIT/1 ML 3ML VIAL SQ SCH ×4 (07:30→21:00)
[2018-06-29] MEDS: GLIMEPIRIDE 2 MG TAB PO SCH ×2 (07:30→16:10)
[2018-06-29] MEDS: METFORMIN HCL 500 MG TAB PO SCH ×2 (08:52→16:10)
[2018-06-29] MEDS: LOSARTAN POTASSIUM 100 MG TAB PO SCH (08:53)
[2018-06-29] MEDS: CEFTRIAXONE SOD 1 GM/NS 50 ML 50 ML IV SCH ×2 (08:53→21:35)
--- NOTE | 2018-06-29 11:25 | NUR ---
IMM letter delivered and explained to pt and family at bedside. They verbalized understanding. Signed copy placed in chart. Copy given to pt's family at bedside.
--- NOTE | 2018-06-29 16:06 | Progress Note ---
DATE: Cardiology Progress Note DIAGNOSES: 1. Pneumonia. 2. Hypertension. 3. Type 2 diabetes mellitus. 4. Obesity. Chest x-ray showed right lower lobe pneumonia. The patient's echo, EF of 55%. The patient has no congestive heart failure. The patient does not have any chest pain; predominantly came with increased WBC count and pneumonia. The patient is getting IV antibiotics and continue present care and I will continue to follow the patient from cardiac point of view. MD MIGUEL Villegas/DAVID /[id number] MTDAlyson
[2018-06-29] MEDS: AZITHROMYCIN 500MG/NS 250 ML 250 ML IV SCH (19:45)
--- NOTE | 2018-06-29 23:42 | Progress Note ---
DATE: SUBJECTIVE: The patient had a modified barium swallow today that showed some aspiration. The patient is afebrile. PHYSICAL EXAMINATION: VITAL SIGNS: Blood pressure is 132/61, pulse is 88, and saturation is 94% on 2 L. HEENT: Shows no facial swelling or erythema. Nasal mucosa is normal. Oropharynx is normal. LYMPHATIC: Shows no submandibular, cervical, or supraclavicular adenopathy. CARDIAC: Reveals regular rate and rhythm with normal S1 and S2. There are no murmurs or rubs. LUNGS: Auscultation of lungs reveals rhonchorous breath sounds bilaterally. There is no wheezing. ABDOMEN: Soft, nontender. There is no rebound or guarding. LABORATORY DATA: The BUN to creatinine ratio is normal. The other electrolytes are within normal limits. White blood cell count is 13.2 and hemoglobin is 10. The platelet count is 274. IMPRESSION: 1. Aspiration pneumonia with sepsis, present on admission. 2. Diabetes. 3. Hypertension. PLAN: 1. Continue current antibiotics. 2. Pureed diet is recommended by Speech Therapy. 3. Neuromuscular electrical stimulation and speech therapy. 4. Physical therapy. 5. Continue current diabetic regimen. 6. Continue to monitor blood pressure. Nilson West MD [facility]/MODL /[id number]
[2018-06-30 00:52] VITALS: BP 130/61
[2018-06-30] MEDS: ALBUTEROL SULF 0.083% NEB SOLN 3 ML NEB NEB SCH ×4 (03:00→15:00)
[2018-06-30 06:07] VITALS: BP 141/64
[2018-06-30 06:07] LABS: BASOPHILS % 0.4 % (0.0-1.0); EOSINOPHILS # (AUTO) 0.2 (0.0-0.4); EOSINOPHILS % 1.6 % (0.0-6.0); HEMATOCRIT 28.4 % (38.2-49.6); HEMOGLOBIN 9.3 g/dL (14.0-18.0); LYMPHOCYTES # (AUTO) 1.5 (1.0-3.2); LYMPHOCYTES % 14.2 % (18.0-39.1); MEAN CORPUSCULAR HEMOGLOBIN 29.7 pg (28-32); MEAN CORPUSCULAR HGB CONC 32.7 g/dL (31-35); MEAN CORPUSCULAR VOLUME 90.7 fL (81-99); MONOCYTES # (AUTO) 1.1 (0.2-0.8); NEUTROPHILS # (AUTO) 7.8 (2.1-6.9); NEUTROPHILS % 72.6 % (38.7-80.0); PLATELET COUNT 293 x10e3/uL (140-360); RED BLOOD COUNT 3.13 x10e6/uL (4.3-5.7); RED CELL DISTRIBUTION WIDTH 14.1 % (11.7-14.4)
[2018-06-30 06:35] LABS: ALANINE AMINOTRANSFERASE 47 IU/L (0-55); ALBUMIN 1.9 g/dL (3.5-5.0); ALBUMIN/GLOBULIN RATIO 0.5 (0.8-2.0); ALKALINE PHOSPHATASE 61 IU/L (40-150); ANION GAP 10.6 mmol/L (8-16); BLOOD UREA NITROGEN 13 mg/dL (7-26); BUN/CREATININE RATIO 17 (6-25); CALCIUM 8.1 mg/dL (8.4-10.2); CARBON DIOXIDE 24 mmol/L (22-29); CHLORIDE 107 mmol/L (98-107); CREATININE, SERUM 0.75 mg/dL (0.72-1.25); EST GLOMERULAR FILTRATION RATE > 60 ML/MIN (60-); GLUCOSE 114 mg/dL (74-118); POTASSIUM 3.6 mmol/L (3.5-5.1); SODIUM 138 mmol/L (136-145)
[2018-06-30] MEDS: IPRATROPIUM BROMIDE 0.02% 2.5 ML NEB NEB SCH ×2 (07:00→10:44)
[2018-06-30] MEDS ORDERED: GLIMEPIRIDE 2 MG TAB PO SCH (07:30)
--- NOTE | 2018-06-30 07:39 | Diagnostic Imaging Report ---
Exam: Modified barium swallow History: Pneumonia with possible aspiration Comparison: None available Findings: Procedure was performed in conjunction with Speech Pathology. Patient was administered a variety of barium impregnated substances and swallowing mechanism was recorded and saved to the medical record. There is premature spillage to the vallecula with mixed substances. Laryngeal penetration is noted with thin liquids. Silent aspiration was also noted. Please see the full report provided by the Speech Pathologist. Fluoroscopy time: 0.3 minutes Total dose: 8.76 mGy Impression: Laryngeal penetration and silent aspiration noted. Signed by: Dr. Bayron Kim DO on 06/30/2018 7:35 AM
[2018-06-30 08:10] VITALS: BP 128/60
[2018-06-30] MEDS: METFORMIN HCL 500 MG TAB PO SCH (08:51)
[2018-06-30] MEDS: CEFTRIAXONE SOD 1 GM/NS 50 ML 50 ML IV SCH (08:51)
[2018-06-30] MEDS: LOSARTAN POTASSIUM 100 MG TAB PO SCH (08:52)
[2018-06-30 08:57] VITALS: BP 128/60
[2018-06-30] MEDS: INSULIN LISPRO 100 UNIT/1 ML 3ML VIAL SQ SCH ×2 (09:07→12:17)
[2018-06-30 12:25] VITALS: BP 137/63
--- NOTE | 2018-06-30 13:48 | NUR ---
CM SPOKE TO PATIENT AT BEDSIDE REGARDING OUTPATIENT SPEECH THERAPY. PATIENT AWARE OF ORDER AND CHOOSES [facility] OUTPATIENT SPEECH THERAPY. CLINICAL, ORDER AND FACESHEET SENT TO (FAX) [phone]. PATIENT AWARE TO KEEP PHONE CLOSE SO THAT SHE CAN RECEIVE CALL FROM OUTPATIENT THERAPY TO SET UP FIRST APPOINTMENT.
--- NOTE | 2018-06-30 14:36 | NUR ---
OMAR SPOKE WITH SPEECH THERAPIST, ED, REGARDING PATIENT SET UP FOR OUTPATIENT SPEECH THERAPY. RICCI WILL BE COORDINATING WITH FAMILY DURING THIS PROCESS. TENTATIVE APPOINTMENT SCHEDULED FOR WednesdayJuly. BEDSIDE RN AWARE THAT A FORM WILL NEED TO BE SIGNED BY MD TO ENSURE PATIENT RECEIVES THERAPY IN A TIMELY MANNER.
--- NOTE | 2018-06-30 15:20 | NUR ---
PIV REMOVED WITH TIP INTACT. RX AND D/C INSTRUCTIONS THOROUGHLY EXPLAINED TO PATIENT AND AGAIN TO SON WHOM WAS AT BEDSIDE. STRESSED IMPORTANCE OF NECTAR THICK LIQUIDS AND TO FOLLOW UP WITH OUTPATIENT SPEECH THERAPY. ALL PERSONAL BELONGINGS IN HAND AT TIME OF D/C. ESCORTED TO FRONT LOBBY ENTRANCE VIA WHERE DAUGHTER AWAITED IN PRIVATE AUTO. SAFELY TRANSFERRED INTO AUTO.
--- NOTE | 2018-07-01 04:35 | Discharge Summary ---
PRIMARY CARE DOCTOR: Dr. Molina Toribio. FINAL DIAGNOSIS: Aspiration pneumonia. SECONDARY DIAGNOSES: 1. Dysphagia. 2. Diabetes. 3. Hypertension. COMPENSATION AND HRIS ANALYST: Dr. Orozco, Cardiology. PROCEDURES/STUDIES PERFORMED: 1. Echocardiogram. 2. Modified barium swallow study. HISTORY: Per H and P. HOSPITAL COURSE: Initially, the patient came in with a white count of 18. The patient was started on IV antibiotics. He improved clinically. The patient underwent a modified barium swallow study. At this time, he can have regular diet, but he has to have a nectar thick liquid diet. I will arrange outpatient speech therapy to continue neuromuscular stimulation for his dysphagia. The patient had mild hyponatremia initially. This has resolved. I will go ahead and discharge him on doxycycline for another five days to complete a course of his treatment. The patient was seen and examined today. It took 35 minutes total to discharge this patient. CONDITION ON DISCHARGE: Improved. DISCHARGE MEDICATIONS: Please see medication reconciliation form. MD TYRA Pepe/DAVID /[id number] cc: Molina Toribio
== END 2018-06-30 15:45 | disposition home or self-care (01) | DRG 871 ==
LOC: ER 13:05 → EDSEX 13:05 → ERHOLD 18:49 → MED/SURG2 06-28 19:40
PROVIDERS: ADMIT Internal Medicine; ATTEND Internal Medicine
DX: A41.9 Sepsis, unspecified organism (principal); J69.0 Pneumonitis due to inhalation of food and vomit; R13.10 Dysphagia, unspecified; E11.9 Type 2 diabetes mellitus without complications; I10 Essential (primary) hypertension; E66.9 Obesity, unspecified; Z68.34 Body mass index [BMI] 34.0-34.9, adult
CPT/HCPCS: 36415; 71045; 71046; 74230; 80048; 80053; 81001; 82550; 82553; 82948; 83605; 84484; 85025; 87040; 87081; 87086; 87400; 93005; 93306; 94640; 97139; 99284; J0456; J0696; J7030

== ENCOUNTER → 2018-08-02 | Outpatient (RCR) | payer MEDICARE ==
--- NOTE | 2018-07-11 15:15 | NUR ---
Patient Name: Balta Tatum: 1935 Age/Sex: 83/femaleOrdering Physician: Molina Toribio MD Clinical Swallow Evaluation/Initial Treatment Session Patient is a 83 year old male with diagnosis of dysphagia and choking. Patient completed a modified barium swallow (MBS) study on 06/30/2018. Pt presented with mild to moderate pharyngeal dysphagia c/b silent megan aspiration of thin liquids, and moderate pharyngeal residue after the swallow. Dysphagia was judged to be secondary to decreased coordination of the swallow, tongue base weakness, and decreased hyolaryngeal excursion. Recommendation was made for dysphagia therapy to increase strength and coordination of swallow. Patient was seen today in the outpatient clinic for initial treatment of Neuromuscular Electrical Stimulation (NMES) with VitalStim Therapy and traditional dysphagia therapy with pharyngeal exercises. Pt was seen with no family present. Oral motor exam revealed function that was grossly within normal limits. Patient tolerates room air. Hearing appeared to be WFL. Speech and language skills were functional. Patient reported reports using thickener regularly at home. Provided extensive education re: need for therapy, purpose of exercises and NMES, and future plan of care. Pt indicated understanding. Pt was given water and hard candy. Pt was instructed to take small sips and swallow hard, feeling all the muscles in her throat contract. Placement 3b was used to target the mylohyoid muscle, the anterior belly of the digastric muscle, the sternohyoid muscle, the omohyoid muscle, the geniohyoid muscle, and the middle pharyngeal constrictors. Channel 1 of the electrodes was aligned horizontally just above the hyoid bone and channel 2 of the electrodes was aligned horizontally at the level of the thyroid notch. This placement was used to improve base of tongue strength, pharyngeal constriction, and UES function. Pt initially tolerated 11.0 mA, but as the session progressed pt tolerated 17.0 mA. Pt received 40 minutes of stimulation. Cough noted X 0, throat clear X 3. During NMES an exercise program was presented, demonstrated, and discussed. Pt completed the exercises with minimal assistance. A home program was assigned. Pt verbalized understanding of the home exercise program. Education provided as indicated. All questions were answered. Pt/daughter indicated that attending therapy 3x/week would be convenient Impressions: Pt tolerated initial session of NMES well. He continues to report and demonstrate s/s of aspiration during meals which significantly interferes with his quality of life. Pt is an excellent candidate for dysphagia exercises and NMES for improvement of strength and coordination of swallow. Recommendations: 1.Dysphagia therapy to include traditional exercises and NMES 3X/week for 4 weeks for a total of 12 treatment sessions 2.Home exercise program 3.Repeat MBS in 4-6 weeks with new goals to be determined at that time [employer] Goal: Pt will tolerate least restrictive diet without s/s of aspiration as judged by an objective evaluation. Short Term Goals: 1.Pt will complete 3 repetitions of a set of dysphagia exercises to improve laryngeal elevation, base of tongue retraction, and laryngeal closure, 10 repetitions per exercise, with minimal cues. 2.Pt will tolerate NMES for 45 60 minutes with no clinical s/s of aspiration to improve strength of pharyngeal constrictors, hyolaryngeal excursion, and safety with po intake. 3.Pt will complete home dysphagia exercise program targeting laryngeal elevation, base of tongue strength, and cricopharyngeal function independently. 4.Pt will follow aspiration precautions with independence. 5.Pt will participate in a repeat Modified Barium Swallow study to objectively re-assess swallow safety and function and determine safest diet. Martha Lofton M.S. CCC-HAND GLUER AND SLICER Date of Session: 07/11/18 Dysphagia Evaluation and Treatment X 45 minutes Physicians signature below certifies medical necessity for these skilled interventions Physician SignatureDate NOMS Rating for Swallowing: Level 5
[~2018-08-02] MED LIST: CEFTIN PO; GLIMEPIRIDE2 MG PO; HYDROCHLOROTHIA25 MG PO; LOSARTAN POTAS100 MG PO; METFORMIN HCL500 MG PO
== END ==
LOC: ST 07-11 14:13
PROVIDERS: ATTEND Family Medicine
DX: R13.13 Dysphagia, pharyngeal phase (principal); J18.9 Pneumonia, unspecified organism

== ENCOUNTER → 2018-08-09 | Outpatient (CLI) | payer MEDICARE ==
--- NOTE | 2018-08-09 12:08 | Diagnostic Imaging Report ---
Chest, 2 views, 08/09/2018. History: Pneumonia. Comparison: 06/29/2018. Findings: The cardiomediastinal silhouette and pulmonary vasculature are within normal limits. Slight right lower lobe opacity remains, significantly decreased compared to prior exam. Left lung is clear. Biapical pleural thickening is noted. Contrast noted within the stomach. Degenerative changes are present throughout the thoracic spine. There are no acute osseous or soft tissue abnormalities. Impression: Significant improvement in right lower lobe pneumonia. Signed by: Miguel Angel Evans on 08/09/2018 12:05 PM
--- NOTE | 2018-08-10 07:42 | Diagnostic Imaging Report ---
PROCEDURE: X-RAY MODIFIED BARIUM SWALLOW COMPARISON: Modified barium swallow 06/30/2018. INDICATION: Pneumonia, dysphagia. Radiation Details: Fluoroscopy time: 0 minutes Cumulative dose: 11.4 mGy Air Kerma: 1.256 Gycm2 DISCUSSION: Fluoroscopic examination was performed in conjunction with speech pathology during swallowing a variety of thin and thick liquid consistencies. Provided images demonstrate trace penetration and trace aspiration with thin liquids, decreased from the prior study. Degenerative disc changes of the cervical spine. CONCLUSION: Modified barium swallow demonstrating trace penetration and trace aspiration, decreased from the prior study. Please refer to the speech pathology report for further details. Signed by: Dr. Damon Burciaga MD on 08/10/2018 7:39 AM
== END ==
LOC: DX 10:56
PROVIDERS: ATTEND Family Medicine
DX: R13.13 Dysphagia, pharyngeal phase (principal); J18.9 Pneumonia, unspecified organism; R09.89 Other specified symptoms and signs involving the circulatory and respiratory systems
CPT/HCPCS: 71046; 74230

== ENCOUNTER 2018-08-31 11:00 | Outpatient (RCR) | payer MEDICARE ==
--- NOTE | 2018-08-16 11:32 | NUR ---
ST NOTE: Pt no show for Speech Therapy, next apt scheduled
--- NOTE | 2018-08-16 12:31 | NUR ---
Speech Therapy MEssages have been left with pt and family re: next appointment
== END 2018-09-02 ==
LOC: ST 11:00
PROVIDERS: ATTEND Family Medicine
DX: R13.10 Dysphagia, unspecified (principal); J18.9 Pneumonia, unspecified organism

== ENCOUNTER 2018-09-09 11:00 | Outpatient (RCR) | payer MEDICARE | END 2018-10-02 | LOC: ST 11:00 | PROVIDERS: ATTEND Family Medicine | DX: R13.13 Dysphagia, pharyngeal phase (principal); Z87.01 Personal history of pneumonia (recurrent) ==

== ENCOUNTER → 2018-09-13 | Outpatient (CLI) | payer MEDICARE ==
--- NOTE | 2018-09-13 15:42 | Diagnostic Imaging Report ---
PROCEDURE: X-RAY MODIFIED BARIUM SWALLOW COMPARISON: Modified barium swallow 08/09/2018. INDICATION: Dysphagia. Radiation Details: Fluoroscopy time: 2.0 minutes Cumulative dose: 4.1 mGy Air Kerma: 1.3 Gycm2 DISCUSSION: Fluoroscopic examination was performed in conjunction with speech pathology during swallowing a variety of thin and thick liquid consistencies. Provided images demonstrate trace penetration without evidence of aspiration. There is mild to moderate vallecular residue and mild piriform sinus residue with thin liquids. CONCLUSION: Modified barium swallow demonstrating trace penetration without evidence of aspiration. Please refer to the speech pathology report for further details. Signed by: Dr. Damon Burciaga MD on 09/13/2018 3:38 PM
== END ==
LOC: DX 10:12
PROVIDERS: ATTEND Family Medicine
DX: R13.13 Dysphagia, pharyngeal phase (principal); Z87.01 Personal history of pneumonia (recurrent)
CPT/HCPCS: 74230